=== PATIENT | female | born 1935 | race Caucasian/White ===

== ENCOUNTER 2018-03-12 23:39 | Inpatient (IN) | payer MEDICARE, OTHER ==
[2018-03-13] MEDS: morphine 4 MG/ML VIAL IV (00:09)
[2018-03-13] MEDS: IPRATROPIUM (NEB) 0.5 MG/2.5 ML AMP HHN (00:10)
[2018-03-13] MEDS: ALBUTEROL 0.083% (NEB) 2.5 MG/3 ML AMP HHN (00:10)
[2018-03-13] MEDS: ONDANSETRON 4 MG INJ IV (00:10)
[2018-03-13 00:12] LABS: ADD MAN DIFF? NO
[2018-03-13 00:14] LABS: WHITE BLOOD COUNT 7.8 10^3/ul (4.8-10.8)
[2018-03-13 00:15] LABS: BASOPHILS % 0.4 % (0.0-2.0); EOSINOPHILS # 0.2 10^3/ul (0.0-0.5); EOSINOPHILS % 2.8 % (0.0-7.0); HEMATOCRIT 30.9 % (37.0-47.0); HEMOGLOBIN 9.8 g/dl (12.0-16.0); LYMPHOCYTES # 2.5 10^3/ul (0.8-2.9); LYMPHOCYTES % 32.6 % (15.0-51.0); MEAN CORPUSCULAR HEMOGLOBIN 34.8 pg (29.0-33.0); MEAN CORPUSCULAR HGB CONC 31.7 g/dl (32.0-37.0); MEAN CORPUSCULAR VOLUME 109.6 fl (82.0-101.0); MEAN PLATELET VOLUME 9.3 fl (7.4-10.4); MONOCYTE # 0.5 10^3/ul (0.3-0.9); MONOCYTES % 5.8 % (0.0-11.0); NEUTROPHIL # 4.5 10^3/ul (1.6-7.5); NEUTROPHILS % 57.9 % (39.0-77.0); PLATELET COUNT 176 10^3/UL (140-415); RED BLOOD COUNT 2.82 10^6/ul (4.20-5.40); RED CELL DISTRIBUTION WIDTH 13.5 % (11.5-14.5)
[2018-03-13 00:30] LABS: INR 1.05; PROTIME 13.8 Sec (11.9-14.9); PT RATIO 1.1
[2018-03-13 00:32] LABS: ANION GAP 11 (8-16); BLOOD UREA NITROGEN 22 mg/dl (7-20); CALCIUM 8.5 mg/dl (8.4-10.2); CARBON DIOXIDE 36 mmol/L (21-31); CHLORIDE 95 mmol/L (97-110); CREATININE 0.55 mg/dl (0.44-1.00); GLUCOSE 133 mg/dl (70-220); POTASSIUM 3.7 mmol/L (3.5-5.1); SODIUM 138 mmol/L (135-144)
[2018-03-13 00:44] LABS: B-TYPE NATRIURETIC PEPTIDE 137 PG/ML (0-450)
[2018-03-13 00:47] LABS: TROPONIN-I < 0.012 ng/ml (0.00-0.12)
[2018-03-13 00:56] LABS: AADO2 Arterial 306.2 mmHg (7.0-24.0); Allen Test ACCEPTAB; Arterial Base Excess 5.3 mmol/L (-3.0-3); Arterial Blood Gas Oxygen Sat 92.9 mmHG (95.0-100.0); Arterial COHb 0.6 % (0.0-3.0); Arterial Fraction of Oxyhgb 92.1 % (93.0-99.0); Arterial HCO3 30.6 mmol/L (22.0-26.0); Arterial MetHb 0.3 % (0.0-1.5); Arterial Total Hemglobin 10.4 g/dl (12.0-18.0); Arterial pCO2 48.3 mmhg (35-45); MODE TRACH COLLAR; Site Left Radial
[2018-03-13] MEDS: SOD CHLORIDE 0.9% 100 ML (01:08)
[2018-03-13] MEDS: IOHEXOL 100 ML (01:08)
[2018-03-13] MEDS: HEPARIN 1000 UNITS/ML 10 ML INJ IV (03:22)
[2018-03-13] MEDS: HEPARIN 25000 UNITS/250 ML 250 ML IV (03:34)
[2018-03-13] MEDS: SOD CHLORIDE 0.9% 1,000 ML IV (03:37)
[2018-03-13] MEDS: PIPER-TAZO 3.375 GM IV (PMX) 100 ML IVPB (04:16)
[2018-03-13] MEDS ORDERED: ACETAMINOPHEN 325 MG TAB PO (05:30)
[2018-03-13] MEDS ORDERED: ONDANSETRON 4 MG INJ IV (05:30)
[2018-03-13] MEDS ORDERED: morphine 2 MG INJ IV (05:30)
[2018-03-13] MEDS ORDERED: NACL 0.9% 3 ML SYG IV (05:30)
[2018-03-13] MEDS ORDERED: NITROGLYCERIN (SL) 0.4 MG TAB SL (05:30)
[2018-03-13] MEDS ORDERED: HEPARIN 1000 UNITS/ML 10 ML INJ IV (05:30)
[2018-03-13 06:06] LABS: AADO2 Arterial 126.9 mmHg (7.0-24.0); Arterial Base Excess 7.8 mmol/L (-3.0-3); Arterial Blood Gas Oxygen Sat 98.9 mmHG (95.0-100.0); Arterial COHb 0.2 % (0.0-3.0); Arterial Fraction of Oxyhgb 98.4 % (93.0-99.0); Arterial HCO3 34.6 mmol/L (22.0-26.0); Arterial MetHb 0.3 % (0.0-1.5); Arterial Total Hemglobin 10.2 g/dl (12.0-18.0); MODE VENT - SIMV; Site LB
[2018-03-13 06:19] LABS: ADD MAN DIFF? NO
[2018-03-13 06:34] LABS: WHITE BLOOD COUNT 8.4 10^3/ul (4.8-10.8)
[2018-03-13 06:34] LABS: BASOPHILS % 0.4 % (0.0-2.0); EOSINOPHILS # 0.1 10^3/ul (0.0-0.5); EOSINOPHILS % 1.4 % (0.0-7.0); HEMOGLOBIN 9.3 g/dl (12.0-16.0); LYMPHOCYTES # 1.4 10^3/ul (0.8-2.9); LYMPHOCYTES % 17.2 % (15.0-51.0); MEAN CORPUSCULAR HGB CONC 32.1 g/dl (32.0-37.0); MEAN PLATELET VOLUME 9.6 fl (7.4-10.4); MONOCYTE # 0.6 10^3/ul (0.3-0.9); MONOCYTES % 7.3 % (0.0-11.0); NEUTROPHIL # 6.1 10^3/ul (1.6-7.5); NEUTROPHILS % 73.2 % (39.0-77.0); PLATELET COUNT 166 10^3/UL (140-415); RED BLOOD COUNT 2.66 10^6/ul (4.20-5.40); RED CELL DISTRIBUTION WIDTH 13.6 % (11.5-14.5)
[2018-03-13 07:11] LABS: ALANINE AMINOTRANSFERASE 37 IU/L (13-69); ALBUMIN 3.2 g/dl (3.3-4.9); ALBUMIN/GLOBULIN RATIO 0.94; ALKALINE PHOSPHATASE 94 IU/L (42-121); ANION GAP 10 (8-16); ASPARTATE AMINO TRANSFERASE 21 IU/L (15-46); BILIRUBIN,INDIRECT 0.2 mg/dl (0-1.1); BILIRUBIN,TOTAL 0.2 mg/dl (0.2-1.3); BLOOD UREA NITROGEN 19 mg/dl (7-20); CALCIUM 8.3 mg/dl (8.4-10.2); CARBON DIOXIDE 34 mmol/L (21-31); CHLORIDE 99 mmol/L (97-110); GLUCOSE 115 mg/dl (70-220); SODIUM 139 mmol/L (135-144); TOTAL PROTEIN 6.6 g/dl (6.1-8.1)
[2018-03-13 07:15] LABS: PARTIAL THROMBOPLASTIN TIME > 180.0 Sec (25.0-35.0)
[2018-03-13 09:40] LABS: PARTIAL THROMBOPLASTIN TIME 54.7 Sec (25.0-35.0)
[2018-03-13] MEDS ORDERED: LORAZEPAM 2 MG INJ IV (10:00)
[2018-03-13 12:43] LABS: CREATINE KINASE 28 IU/L (23-200)
[2018-03-13 12:56] LABS: PARTIAL THROMBOPLASTIN TIME 32.4 Sec (25.0-35.0)
[2018-03-13 12:56] LABS: CK INDEX 1.8; CK-MB 0.51 ng/ml (0.0-2.4); TROPONIN-I 0.027 ng/ml (0.00-0.12)
[2018-03-13 16:22] LABS: PARTIAL THROMBOPLASTIN TIME 31.5 Sec (25.0-35.0)
[2018-03-13] MEDS: D5W-0.45 NACL + KCL 20 MEQ 1,000 ML IV (17:00)
[2018-03-13 19:01] LABS: PARTIAL THROMBOPLASTIN TIME 33.5 Sec (25.0-35.0)
[2018-03-13 20:16] LABS: PARTIAL THROMBOPLASTIN TIME 31.5 Sec (25.0-35.0)
[2018-03-13] MEDS: LEVETIRACETAM (100 MG/ML) 5ML CUP PEG (20:58)
[2018-03-13] MEDS: ATORVASTATIN 10 MG TAB PEG (20:58)
[2018-03-13] MEDS: MAGNESIUM OXIDE 400 MG TAB PEG (20:58)
[2018-03-13] MEDS: POLYETHYLENE GLYCOL 17 GM PACKET PEG (20:58)
[2018-03-13] MEDS: TOLTERODINE 2 MG TAB PEG (20:58)
[2018-03-13] MEDS: MAGNESIUM HYDROXIDE 30ML CUP PEG (20:59)
[2018-03-13] MEDS: DOCUSATE SODIUM 10 MG/ML (10ML CUP) PO (20:59)
[2018-03-13] MEDS: METOCLOPRAMIDE (1 MG/ML) 10 ML CUP PEG (20:59)
[2018-03-13] MEDS ORDERED: NON-FORMULARY/PATIENT OWN MED (Protein Supplement (Promod) 30 ML) PEG (21:00)
[2018-03-13 23:15] LABS: PARTIAL THROMBOPLASTIN TIME 32.4 Sec (25.0-35.0)
[2018-03-14 05:29] LABS: ADD MAN DIFF? NO
[2018-03-14 05:49] LABS: WHITE BLOOD COUNT 7.5 10^3/ul (4.8-10.8)
[2018-03-14 05:49] LABS: BASOPHILS % 0.3 % (0.0-2.0); EOSINOPHILS # 0.2 10^3/ul (0.0-0.5); HEMOGLOBIN 9.6 g/dl (12.0-16.0); LYMPHOCYTES # 2.4 10^3/ul (0.8-2.9); LYMPHOCYTES % 31.7 % (15.0-51.0); MEAN CORPUSCULAR HEMOGLOBIN 34.7 pg (29.0-33.0); MEAN CORPUSCULAR HGB CONC 33.1 g/dl (32.0-37.0); MEAN CORPUSCULAR VOLUME 104.7 fl (82.0-101.0); MEAN PLATELET VOLUME 9.8 fl (7.4-10.4); MONOCYTE # 0.6 10^3/ul (0.3-0.9); MONOCYTES % 8.1 % (0.0-11.0); NEUTROPHIL # 4.3 10^3/ul (1.6-7.5); NEUTROPHILS % 57.4 % (39.0-77.0); PLATELET COUNT 162 10^3/UL (140-415); RED BLOOD COUNT 2.77 10^6/ul (4.20-5.40); RED CELL DISTRIBUTION WIDTH 13.7 % (11.5-14.5)
[2018-03-14 06:15] LABS: ANION GAP 12 (8-16); BLOOD UREA NITROGEN 15 mg/dl (7-20); CALCIUM 8.6 mg/dl (8.4-10.2); CARBON DIOXIDE 29 mmol/L (21-31); CHLORIDE 101 mmol/L (97-110); CREATININE 0.58 mg/dl (0.44-1.00); GLUCOSE 105 mg/dl (70-220); MAGNESIUM 1.9 mg/dl (1.7-2.5); PHOSPHORUS 2.6 mg/dl (2.5-4.9); POTASSIUM 3.3 mmol/L (3.5-5.1); SODIUM 139 mmol/L (135-144)
[2018-03-14 08:07] LABS: AADO2 Arterial 118.9 mmHg (7.0-24.0); Allen Test ACCEPTAB; Arterial Base Excess 4.1 mmol/L (-3.0-3); Arterial COHb 0.1 % (0.0-3.0); Arterial Fraction of Oxyhgb 92.6 % (93.0-99.0); Arterial HCO3 25.3 mmol/L (22.0-26.0); Arterial MetHb 0.3 % (0.0-1.5); Arterial Total Hemglobin 9.9 g/dl (12.0-18.0); Arterial pCO2 26.7 mmhg (35-45); MODE VENT - AC; Site Right Radial
[2018-03-14] MEDS ORDERED: HYDROXYUREA 500 MG CAP PO (09:00)
[2018-03-14] MEDS: FAMOTIDINE 20 MG TAB PEG (09:06)
[2018-03-14] MEDS: TOLTERODINE 2 MG TAB PEG (09:06)
[2018-03-14] MEDS: LEVOTHYROXINE 175 MCG TAB PEG (09:06)
[2018-03-14] MEDS: CYANOCOBALAMIN 500 MCG TAB PEG (09:06)
[2018-03-14] MEDS: FOLIC ACID 1 MG TAB PEG (09:06)
[2018-03-14] MEDS: DOCUSATE SODIUM 10 MG/ML (10ML CUP) PO ×2 (09:07→21:00)
[2018-03-14] MEDS: LEVETIRACETAM (100 MG/ML) 5ML CUP PEG ×2 (09:07→21:00)
[2018-03-14] MEDS: POLYETHYLENE GLYCOL 17 GM PACKET PEG ×2 (09:07→21:00)
[2018-03-14] MEDS: MAGNESIUM OXIDE 400 MG TAB PEG ×2 (09:07→21:00)
[2018-03-14] MEDS: MULTIVITAMINS 30 ML CUP PEG (09:07)
[2018-03-14] MEDS: MAGNESIUM HYDROXIDE 30ML CUP PEG ×2 (09:07→21:00)
[2018-03-14] MEDS: METOCLOPRAMIDE (1 MG/ML) 10 ML CUP PEG ×2 (09:07→21:00)
[2018-03-14 09:34] LABS: INR 1.16; PT RATIO 1.2
[2018-03-14] MEDS: POTASSIUM CHLORIDE 20 MEQ POWDER FOR ORAL SOLN GTB (10:59)
[2018-03-14] MEDS: D5W-0.45 NACL + KCL 20 MEQ 1,000 ML IV ×2 (12:56→17:16)
[2018-03-14] MEDS: ATORVASTATIN 10 MG TAB PEG (21:00)
[2018-03-15] MEDS: TOLTERODINE 1 MG TAB PEG ×3 (00:29→20:19)
[2018-03-15] MEDS: ALBUTEROL/IPRATROPIUM (NEB) 3 ML AMP HHN (04:20)
[2018-03-15 06:21] LABS: ADD MAN DIFF? NO
[2018-03-15] MEDS: LEVOTHYROXINE 175 MCG TAB PEG (06:27)
[2018-03-15 06:44] LABS: WHITE BLOOD COUNT 6.5 10^3/ul (4.8-10.8)
[2018-03-15 06:44] LABS: BASOPHILS % 0.3 % (0.0-2.0); EOSINOPHILS # 0.3 10^3/ul (0.0-0.5); HEMATOCRIT 28.2 % (37.0-47.0); HEMOGLOBIN 9.3 g/dl (12.0-16.0); LYMPHOCYTES % 30.4 % (15.0-51.0); MEAN CORPUSCULAR HEMOGLOBIN 35.4 pg (29.0-33.0); MEAN CORPUSCULAR VOLUME 107.2 fl (82.0-101.0); MEAN PLATELET VOLUME 9.6 fl (7.4-10.4); MONOCYTE # 0.6 10^3/ul (0.3-0.9); MONOCYTES % 8.9 % (0.0-11.0); NEUTROPHIL # 3.6 10^3/ul (1.6-7.5); NEUTROPHILS % 55.8 % (39.0-77.0); PLATELET COUNT 173 10^3/UL (140-415); RED BLOOD COUNT 2.63 10^6/ul (4.20-5.40); RED CELL DISTRIBUTION WIDTH 13.7 % (11.5-14.5)
[2018-03-15 07:07] LABS: ANION GAP 10 (8-16); BLOOD UREA NITROGEN 12 mg/dl (7-20); CALCIUM 8.7 mg/dl (8.4-10.2); CARBON DIOXIDE 30 mmol/L (21-31); CHLORIDE 104 mmol/L (97-110); CREATININE 0.52 mg/dl (0.44-1.00); GLUCOSE 94 mg/dl (70-220); MAGNESIUM 1.9 mg/dl (1.7-2.5); PHOSPHORUS 3.3 mg/dl (2.5-4.9); POTASSIUM 3.6 mmol/L (3.5-5.1); SODIUM 140 mmol/L (135-144)
[2018-03-15 07:30] LABS: AADO2 Arterial 91.3 mmHg (7.0-24.0); Allen Test ACCEPTAB; Arterial Base Excess 3.6 mmol/L (-3.0-3); Arterial Blood Gas Oxygen Sat 95.2 mmHG (95.0-100.0); Arterial COHb 0.1 % (0.0-3.0); Arterial Fraction of Oxyhgb 94.8 % (93.0-99.0); Arterial HCO3 27.2 mmol/L (22.0-26.0); Arterial MetHb 0.3 % (0.0-1.5); Blood Gas PS 14; MODE VENT - SIMV; Site Right Radial
[2018-03-15] MEDS: POLYETHYLENE GLYCOL 17 GM PACKET PEG ×2 (07:39→20:19)
[2018-03-15] MEDS: MAGNESIUM HYDROXIDE 30ML CUP PEG ×2 (07:39→20:19)
[2018-03-15] MEDS: DOCUSATE SODIUM 10 MG/ML (10ML CUP) PO ×2 (07:40→20:19)
[2018-03-15] MEDS: METOCLOPRAMIDE (1 MG/ML) 10 ML CUP PEG ×2 (09:00→20:16)
[2018-03-15] MEDS: MULTIVITAMINS 30 ML CUP PEG (09:21)
[2018-03-15] MEDS: LEVETIRACETAM (100 MG/ML) 5ML CUP PEG ×2 (09:21→20:16)
[2018-03-15] MEDS: FOLIC ACID 1 MG TAB PEG (09:22)
[2018-03-15] MEDS: MAGNESIUM OXIDE 400 MG TAB PEG ×2 (09:22→20:15)
[2018-03-15] MEDS: CYANOCOBALAMIN 500 MCG TAB PEG (09:22)
[2018-03-15] MEDS: FAMOTIDINE 20 MG TAB PEG (09:22)
[2018-03-15] MEDS: ATORVASTATIN 10 MG TAB PEG (20:15)
[2018-03-16 05:31] LABS: ADD MAN DIFF? NO
[2018-03-16 06:01] LABS: ANION GAP 12 (8-16); BLOOD UREA NITROGEN 12 mg/dl (7-20); CALCIUM 8.5 mg/dl (8.4-10.2); CARBON DIOXIDE 29 mmol/L (21-31); CHLORIDE 102 mmol/L (97-110); CREATININE 0.49 mg/dl (0.44-1.00); GLUCOSE 121 mg/dl (70-220); MAGNESIUM 1.8 mg/dl (1.7-2.5); PHOSPHORUS 4.2 mg/dl (2.5-4.9); POTASSIUM 3.7 mmol/L (3.5-5.1); SODIUM 139 mmol/L (135-144)
[2018-03-16 06:04] LABS: WHITE BLOOD COUNT 8.1 10^3/ul (4.8-10.8)
[2018-03-16 06:04] LABS: BASOPHILS % 0.2 % (0.0-2.0); EOSINOPHILS # 0.3 10^3/ul (0.0-0.5); EOSINOPHILS % 3.5 % (0.0-7.0); HEMATOCRIT 28.9 % (37.0-47.0); HEMOGLOBIN 9.5 g/dl (12.0-16.0); LYMPHOCYTES # 1.8 10^3/ul (0.8-2.9); LYMPHOCYTES % 22.4 % (15.0-51.0); MEAN CORPUSCULAR HEMOGLOBIN 35.4 pg (29.0-33.0); MEAN CORPUSCULAR HGB CONC 32.9 g/dl (32.0-37.0); MEAN CORPUSCULAR VOLUME 107.8 fl (82.0-101.0); MEAN PLATELET VOLUME 10.1 fl (7.4-10.4); MONOCYTE # 0.7 10^3/ul (0.3-0.9); MONOCYTES % 8.1 % (0.0-11.0); NEUTROPHIL # 5.3 10^3/ul (1.6-7.5); NEUTROPHILS % 65.4 % (39.0-77.0); PLATELET COUNT 113 10^3/UL (140-415); RED BLOOD COUNT 2.68 10^6/ul (4.20-5.40); RED CELL DISTRIBUTION WIDTH 13.8 % (11.5-14.5)
[2018-03-16] MEDS: LEVOTHYROXINE 175 MCG TAB PEG (06:53)
[2018-03-16] MEDS: MAGNESIUM HYDROXIDE 30ML CUP PEG ×2 (08:41→19:58)
[2018-03-16] MEDS: DOCUSATE SODIUM 10 MG/ML (10ML CUP) PO ×2 (08:41→19:57)
[2018-03-16] MEDS: METOCLOPRAMIDE (1 MG/ML) 10 ML CUP PEG ×2 (08:42→21:23)
[2018-03-16] MEDS: MULTIVITAMINS 30 ML CUP PEG (08:42)
[2018-03-16] MEDS: POLYETHYLENE GLYCOL 17 GM PACKET PEG ×2 (08:42→19:57)
[2018-03-16] MEDS: LEVETIRACETAM (100 MG/ML) 5ML CUP PEG ×2 (08:42→21:23)
[2018-03-16] MEDS: FAMOTIDINE 20 MG TAB PEG (08:42)
[2018-03-16] MEDS: CYANOCOBALAMIN 500 MCG TAB PEG (08:43)
[2018-03-16] MEDS: FOLIC ACID 1 MG TAB PEG (08:43)
[2018-03-16] MEDS: MAGNESIUM OXIDE 400 MG TAB PEG ×2 (08:43→21:24)
[2018-03-16] MEDS: TOLTERODINE 1 MG TAB PEG ×2 (08:44→21:24)
[2018-03-16] MEDS: ATORVASTATIN 10 MG TAB PEG (21:24)
[2018-03-16] MEDS: ACETAMINOPHEN 325 MG TAB PEG (23:36)
[2018-03-17 06:17] LABS: ADD MAN DIFF? NO
[2018-03-17 06:25] LABS: WHITE BLOOD COUNT 9.4 10^3/ul (4.8-10.8)
[2018-03-17 06:25] LABS: BASOPHILS % 0.3 % (0.0-2.0); EOSINOPHILS # 0.4 10^3/ul (0.0-0.5); EOSINOPHILS % 3.8 % (0.0-7.0); HEMOGLOBIN 10.1 g/dl (12.0-16.0); LYMPHOCYTES % 21.7 % (15.0-51.0); MEAN CORPUSCULAR HEMOGLOBIN 34.8 pg (29.0-33.0); MEAN CORPUSCULAR HGB CONC 32.6 g/dl (32.0-37.0); MEAN CORPUSCULAR VOLUME 106.9 fl (82.0-101.0); MEAN PLATELET VOLUME 9.9 fl (7.4-10.4); MONOCYTE # 0.9 10^3/ul (0.3-0.9); MONOCYTES % 9.7 % (0.0-11.0); NEUTROPHILS % 63.9 % (39.0-77.0); PLATELET COUNT 117 10^3/UL (140-415); RED CELL DISTRIBUTION WIDTH 13.6 % (11.5-14.5)
[2018-03-17 06:52] LABS: ANION GAP 13 (8-16); BLOOD UREA NITROGEN 10 mg/dl (7-20); CALCIUM 8.8 mg/dl (8.4-10.2); CARBON DIOXIDE 29 mmol/L (21-31); CHLORIDE 100 mmol/L (97-110); CREATININE 0.45 mg/dl (0.44-1.00); GLUCOSE 101 mg/dl (70-220); MAGNESIUM 1.8 mg/dl (1.7-2.5); PHOSPHORUS 5.2 mg/dl (2.5-4.9); POTASSIUM 3.8 mmol/L (3.5-5.1); SODIUM 138 mmol/L (135-144)
[2018-03-17] MEDS: DOCUSATE SODIUM 10 MG/ML (10ML CUP) PO ×2 (09:00→21:00)
[2018-03-17] MEDS: MAGNESIUM HYDROXIDE 30ML CUP PEG ×2 (09:00→21:00)
[2018-03-17] MEDS: POLYETHYLENE GLYCOL 17 GM PACKET PEG ×2 (09:00→21:00)
[2018-03-17] MEDS: LEVOTHYROXINE 175 MCG TAB PEG (09:26)
[2018-03-17] MEDS: FAMOTIDINE 20 MG TAB PEG (09:27)
[2018-03-17] MEDS: METOCLOPRAMIDE (1 MG/ML) 10 ML CUP PEG ×2 (09:27→21:58)
[2018-03-17] MEDS: FOLIC ACID 1 MG TAB PEG (09:27)
[2018-03-17] MEDS: CYANOCOBALAMIN 500 MCG TAB PEG (09:27)
[2018-03-17] MEDS: TOLTERODINE 1 MG TAB PEG ×2 (09:28→21:59)
[2018-03-17] MEDS: LEVETIRACETAM (100 MG/ML) 5ML CUP PEG ×2 (09:28→21:59)
[2018-03-17] MEDS: MULTIVITAMINS 30 ML CUP PEG (09:28)
[2018-03-17] MEDS: MAGNESIUM OXIDE 400 MG TAB PEG ×2 (09:29→21:00)
[2018-03-17] MEDS ORDERED: LIDOCAINE 1% (MDV) 20 ML INJ ×2 (12:55→13:10)
[2018-03-17] MEDS ORDERED: SOD CHLORIDE 0.9% 500 ML (13:10)
[2018-03-17] MEDS: ATORVASTATIN 10 MG TAB PEG (21:59)
[2018-03-18] MEDS: LEVOTHYROXINE 175 MCG TAB PEG (07:59)
[2018-03-18 08:30] LABS: ADD MAN DIFF? NO
[2018-03-18 08:33] LABS: BASOPHILS % 0.3 % (0.0-2.0); EOSINOPHILS # 0.3 10^3/ul (0.0-0.5); EOSINOPHILS % 2.6 % (0.0-7.0); HEMATOCRIT 31.4 % (37.0-47.0); HEMOGLOBIN 10.1 g/dl (12.0-16.0); LYMPHOCYTES # 1.9 10^3/ul (0.8-2.9); LYMPHOCYTES % 18.3 % (15.0-51.0); MEAN CORPUSCULAR HEMOGLOBIN 35.2 pg (29.0-33.0); MEAN CORPUSCULAR HGB CONC 32.2 g/dl (32.0-37.0); MEAN CORPUSCULAR VOLUME 109.4 fl (82.0-101.0); MEAN PLATELET VOLUME 9.8 fl (7.4-10.4); MONOCYTE # 1.1 10^3/ul (0.3-0.9); MONOCYTES % 11.2 % (0.0-11.0); NEUTROPHIL # 6.8 10^3/ul (1.6-7.5); NEUTROPHILS % 67.1 % (39.0-77.0); PLATELET COUNT 179 10^3/UL (140-415); RED BLOOD COUNT 2.87 10^6/ul (4.20-5.40); RED CELL DISTRIBUTION WIDTH 13.7 % (11.5-14.5)
[2018-03-18 08:33] LABS: WHITE BLOOD COUNT 10.1 10^3/ul (4.8-10.8)
[2018-03-18] MEDS: FAMOTIDINE 20 MG TAB PEG (08:50)
[2018-03-18] MEDS: FOLIC ACID 1 MG TAB PEG (08:50)
[2018-03-18] MEDS: TOLTERODINE 1 MG TAB PEG ×2 (08:50→20:23)
[2018-03-18] MEDS: LEVETIRACETAM (100 MG/ML) 5ML CUP PEG ×2 (08:51→20:19)
[2018-03-18] MEDS: POLYETHYLENE GLYCOL 17 GM PACKET PEG ×2 (08:51→20:19)
[2018-03-18] MEDS: MAGNESIUM OXIDE 400 MG TAB PEG ×2 (08:51→20:19)
[2018-03-18] MEDS: METOCLOPRAMIDE (1 MG/ML) 10 ML CUP PEG ×2 (08:51→20:19)
[2018-03-18] MEDS: MAGNESIUM HYDROXIDE 30ML CUP PEG ×2 (08:51→20:20)
[2018-03-18] MEDS: MULTIVITAMINS 30 ML CUP PEG (08:51)
[2018-03-18] MEDS: DOCUSATE SODIUM 10 MG/ML (10ML CUP) PO ×2 (08:51→20:19)
[2018-03-18] MEDS: CYANOCOBALAMIN 500 MCG TAB PEG (08:54)
[2018-03-18 09:09] LABS: ALBUMIN 3.5 g/dl (3.3-4.9); ANION GAP 12 (8-16); BLOOD UREA NITROGEN 15 mg/dl (7-20); CALCIUM 8.6 mg/dl (8.4-10.2); CARBON DIOXIDE 33 mmol/L (21-31); CHLORIDE 98 mmol/L (97-110); CREATININE 0.58 mg/dl (0.44-1.00); GLUCOSE 119 mg/dl (70-220); MAGNESIUM 1.8 mg/dl (1.7-2.5); PHOSPHORUS 4.7 mg/dl (2.5-4.9); POTASSIUM 4.6 mmol/L (3.5-5.1); SODIUM 138 mmol/L (135-144)
[2018-03-18] MEDS: ATORVASTATIN 10 MG TAB PEG (20:19)
[2018-03-19 15:06] LABS: HEPARIN INDUCED PLATELET AB NEGATIVE (NEGATIVE)
== END 2018-03-18 21:05 | DRG 166 ==
LOC: ICU 03-14 04:24 → E/R 23:39 → ICU 03-13 03:19
PROC: 06H03DZ Insertion of Intraluminal Device into Inferior Vena Cava, Percutaneous Approach (ICD-10-PCS; principal; 2018-03-17 12:00)
PROC: 5A1945Z Respiratory Ventilation, 24-96 Consecutive Hours (ICD-10-PCS; 2018-03-17 13:00)
DX: I26.99 Other pulmonary embolism without acute cor pulmonale (principal); J96.21 Acute and chronic respiratory failure with hypoxia; I82.419 Acute embolism and thrombosis of unspecified femoral vein; C94.6 Myelodysplastic disease, not elsewhere classified; J95.01 Hemorrhage from tracheostomy stoma; E03.9 Hypothyroidism, unspecified; I50.9 Heart failure, unspecified; R56.9 Unspecified convulsions; Z88.8 Allergy status to other drugs, medicaments and biological substances; W19.XXXD Unspecified fall, subsequent encounter; S12.190D Other displaced fracture of second cervical vertebra, subsequent encounter for fracture with routine healing; T45.515A Adverse effect of anticoagulants, initial encounter; Y92.239 Unspecified place in hospital as the place of occurrence of the external cause; Z93.1 Gastrostomy status; R13.10 Dysphagia, unspecified
CPT/HCPCS: 36415; 36600; 71045; 71275; 75940; 80048; 80053; 80069; 82550; 82553; 82803; 83735; 83880; 84100; 84484; 85025; 85384; 85610; 85730; 86022; 87040; 87045; 87081; 92610; 93005; 93306; 93970; 94002; 94003; 94640; 94664; 96365; 96366; 96375; 97110; 97163; 97530; 99291-25